=== PATIENT | female | born 1985 | race Caucasian/White ===

== ENCOUNTER 2017-10-17 11:13 | Emergency (ER) | payer BC, OTHER | END 2017-10-17 12:20 | disposition home or self-care (01) | LOC: M ED 11:13 | DX: S39.012A Strain of muscle, fascia and tendon of lower back, initial encounter (principal); S80.02XA Contusion of left knee, initial encounter; W01.0XXA Fall on same level from slipping, tripping and stumbling without subsequent striking against object, initial encounter; Y92.481 Parking lot as the place of occurrence of the external cause; Y93.9 Activity, unspecified; Z79.899 Other long term (current) drug therapy | CPT/HCPCS: 73564 ==

== ENCOUNTER 2019-08-04 12:12 | Emergency (ER) | payer BC ==
[~2019-08-04] VITALS: Ht 160 cm; Wt 60.8 kg
[~2019-08-04 12:12] MED LIST: AMOX500T PO; CLAR5SYP5 PO; IBUP600T42 PO; IBUP80TA PO; MAPA500T17 PO; MAPA500T2 PO; PREN1TAB11 PO; ROBA500T PO
[2019-08-04] MEDS ORDERED: ACET-841 PO (12:24)
[2019-08-04 13:24] LABS: INFLUENZA A AMPLIFICATION NEGATIVE (NEGATIVE); INFLUENZA B AMPLIFICATION POSITIVE (NEGATIVE)
[2019-08-04 13:38] LABS: VENOUS BASE EXCESS 0.4 (-2.0-2.0); VENOUS PARTIAL PRESSURE CO2 40.4 mmHg (38.0-50.0); VENOUS PARTIAL PRESSURE O2 24.7 mmHg (30.0-50.0); VENOUS STANDARD HCO3 23.7 MEQ/L; VENOUS TOTAL CO2 26.3 MEQ/L (24.0-28.0)
[2019-08-04] MEDS ORDERED: NS 1,000 ML IV ONE (13:45)
[2019-08-04] MEDS ORDERED: ONDANSETRON 4MG/2ML VIAL (J2405) IV ONE (13:45)
--- NOTE | 2019-08-04 14:06 | REP ---
Clinical: Cough and fever . Comparison: None . Technique: PA and lateral. Findings: The mediastinum and cardiac silhouette are normal. The lung gastelum are clear and without acute consolidation, effusion, or pneumothorax. The skeletal structures are intact and normal. Impression: 1. No acute cardiopulmonary process. Electronically Signed by Jordin Pettit MD 08/04/2019 01:57 P
[2019-08-04] MEDS ORDERED: ONDA4TAB6 PO (15:04)
[2019-08-04 15:19] VITALS: BP 110/70
--- NOTE | 2019-08-04 19:41 | ECGEPIP ---
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
== END 2019-08-04 15:20 | disposition home or self-care (01) ==
LOC: M ED 12:12
DX: J10.1 Influenza due to other identified influenza virus with other respiratory manifestations (principal); R55 Syncope and collapse
CPT/HCPCS: 71046; 80047; 82803; 83605; 83735; 84702; 87502; 93005; 96361; 96374; 99284; J2405

== ENCOUNTER → 2021-01-26 | Outpatient (REF) | payer BC ==
[~2021-01-26] MED LIST changes: +ACET-841 PO; +ONDA4TAB6 PO
[2021-01-26 12:57] LABS: BASO % 0.5 % (0.0-1.0); EOS # 0.1 10^3/uL (0.0-0.5); EOS % 1.6 % (0.0-3.0); HEMATOCRIT 43.3 % (36.0-47.0); LYMPH % 36.1 % (24.0-44.0); MEAN CORPUSCULAR HEMOGLOBIN 29.2 pg (27.0-33.0); MEAN CORPUSCULAR HGB CONC 32.3 g/dl (32.0-36.5); MEAN CORPUSCULAR VOLUME 90.4 fl (80.0-96.0); MONO # 0.6 10^3/uL (0.0-0.8); MONO % 10.7 % (2.0-8.0); NEUTROPHILS # 2.8 10^3/uL (1.5-8.5); NEUTROPHILS % 50.9 % (36.0-66.0); PLATELET COUNT, AUTOMATED 294 10^3/uL (150-450); RED BLOOD COUNT 4.79 10^6/uL (4.00-5.40); WHITE BLOOD COUNT 5.5 10^3/uL (4.0-10.0)
[2021-01-26 13:40] LABS: ALT/SGPT 19 U/L (12-78); BILIRUBIN,TOTAL 0.4 MG/DL (0.2-1.0); BLOOD UREA NITROGEN 14 MG/DL (7-18); CALCIUM LEVEL 9.2 MG/DL (8.5-10.1); CARBON DIOXIDE LEVEL 26 MEQ/L (21-32); CHLORIDE LEVEL 109 MEQ/L (98-107); CHOLESTEROL LEVEL 186 MG/DL (<200); CHOLESTEROL RISK RATIO 3.576 (<5); CREATININE FOR GFR 0.62 MG/DL (0.55-1.30); GLOMERULAR FILTRATION RATE > 60.0 (>60); GLUCOSE, FASTING 82 MG/DL (70-100); HDL CHOLESTEROL 52 MG/DL (>40); LDL CHOLESTEROL 121 MG/DL (<100); NON-HDL-C 134 MG/DL; POTASSIUM SERUM 4.6 MEQ/L (3.5-5.1); SODIUM LEVEL 140 MEQ/L (136-145); TOTAL PROTEIN 6.8 GM/DL (6.4-8.2); TRIGLYCERIDES LEVEL 64 MG/DL (<150)
== END ==
LOC: M LABDRWAD 12:27
PROVIDERS: ATTEND Nurse Practitioner Family
DX: Z13.6 Encounter for screening for cardiovascular disorders (principal); Z13.21 Encounter for screening for nutritional disorder; Z13.220 Encounter for screening for lipoid disorders; Z13.29 Encounter for screening for other suspected endocrine disorder

== ENCOUNTER → 2022-03-05 | Outpatient (CLI) | payer BC | LOC: M RAD 06:42 | PROVIDERS: ATTEND Nurse Practitioner Family | DX: R10.12 Left upper quadrant pain (principal) ==

== ENCOUNTER 2023-07-25 09:19 | Emergency (ER) | payer BC ==
[2023-07-25] MEDS ORDERED: SUDO4TAB PO (10:10)
[2023-07-25] MEDS ORDERED: MELO15TA28 (10:10)
[2023-07-25 10:17] LABS: BASO % 0.4 % (0.0-1.0); EOS # 0.1 10^3/uL (0.0-0.5); EOS % 1.1 % (0.0-3.0); HEMATOCRIT 39.5 % (36.0-47.0); HEMOGLOBIN 13.3 g/dl (12.0-15.5); LYMPH % 11.9 % (24.0-44.0); MEAN CORPUSCULAR HEMOGLOBIN 29.6 pg (27.0-33.0); MEAN CORPUSCULAR HGB CONC 33.7 g/dl (32.0-36.5); MONO # 0.6 10^3/uL (0.0-0.8); MONO % 7.7 % (2.0-8.0); NEUTROPHILS # 6.5 10^3/uL (1.5-8.5); NEUTROPHILS % 78.4 % (36.0-66.0); PLATELET COUNT, AUTOMATED 288 10^3/uL (150-450); RED BLOOD COUNT 4.49 10^6/uL (4.00-5.40); WHITE BLOOD COUNT 8.3 10^3/uL (4.0-10.0)
[2023-07-25 10:39] LABS: ALBUMIN 3.7 G/DL (3.2-5.2); ALKALINE PHOSPHATASE 55 U/L (46-116); ALT/SGPT 16 U/L (7.0-40); AST/SGOT 15 U/L (<34); BILIRUBIN,TOTAL 0.5 MG/DL (0.3-1.2); BLOOD UREA NITROGEN 14 MG/DL (9-23); CALCIUM LEVEL 9.5 MG/DL (8.5-10.1); CARBON DIOXIDE LEVEL 24 MMOL/L (20-31); CHLORIDE LEVEL 108 MMOL/L (98-107); CREATININE FOR GFR 0.58 MG/DL (0.55-1.30); GLOMERULAR FILTRATION RATE > 60.0 (>60); GLUCOSE, FASTING 99 MG/DL (60-100); POTASSIUM SERUM 3.9 MMOL/L (3.5-5.1); SODIUM LEVEL 141 MMOL/L (136-145); TOTAL PROTEIN 6.5 G/DL (5.7-8.2)
[2023-07-25] MEDS ORDERED: ACETAMINOPHEN 500 MG TAB PO ONE (10:40)
[2023-07-25] MEDS ORDERED: NS 1,000 ML IV ONE (10:40)
[2023-07-25 10:42] LABS: HCG, SERUM QUALITATIVE NEGATIVE (NEGATIVE)
[2023-07-25 14:30] VITALS: BP 113/74; TEMP 99.8; O2SAT 99
== END 2023-07-25 14:50 | disposition home or self-care (01) ==
LOC: M ED 09:19 → EDBD 09:19 → M ED 14:50
DX: B34.0 Adenovirus infection, unspecified (principal); R55 Syncope and collapse